=== PATIENT | male | born 1945 | race Two or more races ===

== ENCOUNTER 2025-05-21 02:40 | Emergency (ER) | payer MEDICARE, OTHER ==
[~2025-05-21] VITALS: Ht 172.7 cm; Wt 77.1 kg
[2025-05-21 02:48] VITALS: BP 146/69; TEMP 98; O2SAT 98
== END 2025-05-21 04:25 ==
LOC: ER 02:44
DX: S01.81XA Laceration without foreign body of other part of head, initial encounter (principal); E11.9 Type 2 diabetes mellitus without complications; E78.5 Hyperlipidemia, unspecified; I11.0 Hypertensive heart disease with heart failure; I25.10 Atherosclerotic heart disease of native coronary artery without angina pectoris; I50.9 Heart failure, unspecified; F02.80 Dementia in other diseases classified elsewhere, unspecified severity, without behavioral disturbance, psychotic disturbance, mood disturbance, and anxiety; Z88.6 Allergy status to analgesic agent; Z95.2 Presence of prosthetic heart valve; W01.0XXA Fall on same level from slipping, tripping and stumbling without subsequent striking against object, initial encounter; Y93.89 Activity, other specified; Y92.89 Other specified places as the place of occurrence of the external cause; Y99.8 Other external cause status
CPT/HCPCS: 70450-TC; 72125-TC; 72170-TC